=== PATIENT | male | born 1945 | race Two or more races ===

== ENCOUNTER 2024-12-28 06:58 | Day surgery (SDC) | payer OTHER ==
[~2024-12-28] VITALS: Ht 152.4 cm; Wt 83.9 kg
[~2024-12-28 06:58] MED LIST: SENN-58 PO; SITA50TA PO; TRAM50TA2 PO
[2024-12-28] MEDS ORDERED: IODIXANOL 320MG/ML 100ML BTL IV ONE (08:26)
[2024-12-28] MEDS ORDERED: VERAPAMIL 2.5MG/ML INJ 2ML VIAL IV ONE (08:33)
[2024-12-28] MEDS ORDERED: LIDOCAINE 2%HCL (LOCAL ANESTH.) INJ 20ML MDV ONE (08:34)
[2024-12-28] MEDS: LIDOCAINE VISCOUS 2% 15ML UD PO ONE (09:05)
[2024-12-28] MEDS: MIDAZOLAM HCL 2MG/2ML 2ml VIAL (1mg/ml) IV ONE (09:12)
[2024-12-28] MEDS: fentaNYL CITRATE 100 MCG/2 ML VL IV ONE (09:13)
--- NOTE | 2024-12-28 09:23 | DVHOP2 ---
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 The patient was brought to the cardiac salvage laborer in [place] state. the patient was given 15 ml of oral viscous lidocaine. the patient was placed in a left lateral decubitus position with bite block in mouth. NExt conscious sedation was administered per salvage laborer protocol with _1_ mg of versed and __50_ mcg of fentanyl. Next a LEATHA probe was advanced to the mid esophagus with ease and multiple planar images obtained. At the completion of the procedure , probe was removed and there were no immediate complications. FINDINGS: Left Ventricle: Normal LV size and function, LVEF estimated at 55% Right Ventricle: NOrmal RV size and function Left atrium: enlarged, Right atrium: mild enlarged Left atrial appendage: no thrombus noted, normal Aortic valve: trileaflet valve, heavily calcified Mitral Valve: structurally normal, mild t mitral regurg, no MS Tricuspid Valve: mild tricuspid regurgitation, no TS Pulmonic Valve: structurally normal, no severe PIor PS Interatrial septum: negative color flow for R to L shunt Ascending aorta: no severe plaquing BRITTANEY NEVES MD Dec 28, 2024 09:23
[2024-12-28] MEDS ORDERED: ANGIOMAX 250 MG VIAL IV ONE (09:42)
[2024-12-28] MEDS ORDERED: SODIUM CHL 0.9% 0 ML ONE (09:42)
[2024-12-28] MEDS ORDERED: HEPARIN SODIUM (PORCINE) 5000 UNITS/ML 1ML VIAL ONE (09:42)
--- NOTE | 2024-12-28 10:08 | DVHOP2 ---
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 PREOPERATIVE DIAGNOSES: Aortic stenosis workup POSTOP DIAGNOSIS: moderate cad DESCRIPTION OF PROCEDURE: The patient or appropriate family signed informed co nsent understanding the risks, benefits and alternatives of the procedure, they wished to proceed. The patient was brought to the cardiac labor relations director in n.p.o. state. The patient was prepped in a sterile fashion. Sedation was used per cardiac cath protocol. I administered 2 mL of 2% lidocaine to the right wrist. With an antegrade front wall puncture. I cannulated the right radial artery and placed a 6-Swed[place] Glidesheath slender. Next, an intra-arterial spasmolytic was administered. Next, a - 4F JR4 and JL4 and were used for coronary angiogram a. At the completion of procedure, all guides and wires were removed, and there were no immediate complications. FINDINGS: RCA: Moderate vessel off the right sinus of Valsalva, there is no severe flow limiting stenosis. mild 20-30%proximal plaque LEFT MAIN: large size left main, it bifurcates into LAD and circumflex. CIRCUMFLEX: Moderate caliber vessel coming off the left main with no flow limiting stenosis. LAD: LAD is a moderate caliber vessel coming of the left main. prox LAD is patent. mid LAD has a tubular 50-60% non critical stenosis. distal LAD is patent CONCLUSIONS: 1. moderate CAD PLAN: Aggressive risk factor modification and medical management for the patient. aortic stenosis is still borderline, CT aortic valve is an option for eval in future BRITTANEY NEVES MD Dec 28, 2024 10:08
[2024-12-28] MEDS ORDERED: MORPHINE SULFATE INJ 2 MG/ml SYRG ONE ×2 (11:25→11:51)
[2024-12-28] MEDS: MORPHINE SULFATE INJ 2 MG/ml SYRG IV ONE ×2 (11:30→12:10)
[2024-12-28] MEDS ORDERED: PROTAMINE SULFATE 10 MG/ML 5ML VIAL IV ONE ×2 (11:30→11:37)
[2024-12-28] MEDS: PROTAMINE SULFATE IV ONE (12:18)
[2024-12-28] MEDS: SODIUM CHL 0.9% IV ONE (12:18)
[2024-12-28 12:40] VITALS: BP 118/57; PULSE 67; RESP 18
== END 2024-12-28 14:42 | disposition home or self-care (01) ==
LOC: CATH 06:58
PROVIDERS: ATTEND Internal Medicine
DX: I35.0 Nonrheumatic aortic (valve) stenosis (principal); I25.10 Atherosclerotic heart disease of native coronary artery without angina pectoris; I08.1 Rheumatic disorders of both mitral and tricuspid valves; R07.89 Other chest pain
CPT/HCPCS: 93312; 93454; C1769; C1894; J1644; J2250; J2270; J2720; J3010; J7030; Q9967; 99152; 99153